=== PATIENT | female | born 1990 | race American Indian/Alaskan Native ===

== ENCOUNTER 2019-12-10 14:38 | Emergency (ER) | payer SELFPAY ==
--- NOTE | 2019-12-10 15:46 | Emergency Department Report ---
Blank Doc - Documentation Documentation: 29-year-old female that presents with n/v and vaginal bleeding. Stated is 9 we eks . This initial assessment/diagnostic orders/clinical plan/treatment(s) is/are subject to change based on patient's health status, clinical progression and re- assessment by fellow clinical providers in the ED. Further treatment and workup at subsequent clinical providers discretion. Patient/guardians urged not to elope from the ED as their condition may be serious if not clinically assessed and managed. Initial orders include: 1- Patient sent to [facility] for further evaluation and treatment 2- labs 3- UA
[2019-12-11] MEDS ORDERED: SODIUM CHLORIDE 0.9% 1000 ML 1,000 ML IV ONE (00:32)
[2019-12-11] MEDS ORDERED: ACETAMINOPHEN 325 MG TAB PO ONE (00:32)
[2019-12-11] MEDS ORDERED: ONDANSETRON 4 MG/2 ML INJ IV ONE (00:32)
[2019-12-11 01:12] LABS: Basophils # (Auto) 0.1 K/mm3 (0.0-0.1); Basophils % (Auto) 0.7 % (0.0-1.8); Eosinophils # (Auto) 0.1 K/mm3 (0.0-0.4); Eosinophils % (Auto) 0.6 % (0.0-4.3); Hematocrit 38.1 % (30.3-42.9); Hemoglobin 11.9 gm/dl (10.1-14.3); Lymphocytes # (Auto) 2.1 K/mm3 (1.2-5.4); Lymphocytes % (Auto) 24.6 % (13.4-35.0); Mean Corpuscular HGB Conc 31 % (30-34); Mean Corpuscular Volume 75 fl (79-97); Monocytes # (Auto) 0.8 K/mm3 (0.0-0.8); Monocytes % (Auto) 9.7 % (0.0-7.3); Platelet Count 301 K/mm3 (140-440); Red Blood Count 5.07 M/mm3 (3.65-5.03); Red Cell Distribution Width 13.6 % (13.2-15.2)
--- NOTE | 2019-12-11 01:34 | Emergency Department Report ---
ED HPI - General Chief complaint: Nausea/Vomiting/Diarrhea Stated complaint: 9 WEEKS PREG BLEEDING,VOMITTING Time Seen by Provider: 12/10/19 15:45 Source: patient Mode of arrival: Ambulatory Limitations: No Limitations - History of Present Illness Initial comments: Patient is a 29-year-old female presents emergency room with complaints of naus ea and vomiting that began yesterday. She has associated generalized abdominal discomfort and vaginal spotting. Patient states that she is currently 9 weeks . Patient states that she went to her OB in [place] today and had ultrasound performed but states she does not know what the ultrasound showed. She denies any urinary symptoms, diarrhea, hematochezia, hematemesis. She states that she had a normal bowel movement today. She denies any past medical history or allergies to medications. She states her last menstrual cycle was 10/07/2019. Patient states this is her first . - Related Data Previous Rx's Medication Instructions Recorded Last Taken Type Metoclopramide [Reglan] 10 mg PO Q8HR PRN #14 tab 12/11/19 Unknown Rx Allergies Allergy/AdvReac Type Severity Reaction Status Date / Time No Known Allergies Allergy Unverified 12/10/19 14:43 ED Review of Systems ROS: Stated complaint: 9 WEEKS PREG BLEEDING,VOMITTING Other details as noted in HPI Comment: All other systems reviewed and negative ED Past Medical Hx - Past Medical History Previous Medical History?: No - Surgical History Past Surgical History?: No - Social History Smoking Status: Never Smoker Substance Use Type: None - Medications Home Medications: Home Medications Medication Instructions Recorded Confirmed Last Taken Type Metoclopramide [Reglan] 10 mg PO Q8HR PRN #14 tab 12/11/19 Unknown Rx ED Physical Exam - General Limitations: No Limitations General appearance: alert, in no apparent distress - Head Head exam: Present: atraumatic, normocephalic - Eye Eye exam: Present: normal appearance - ENT ENT exam: Present: mucous membranes dry (mildly) - Respiratory Respiratory exam: Present: normal lung sounds bilaterally. Absent: respiratory distress, wheezes, rales, rhonchi, stridor, chest wall tenderness, accessory muscle use, decreased breath sounds, prolonged expiratory - Cardiovascular Cardiovascular Exam: Present: regular rate, normal rhythm, normal heart sounds. Absent: systolic murmur, diastolic murmur, rubs, gallop - GI/Abdominal GI/Abdominal exam: Present: soft, normal bowel sounds. Absent: distended, tenderness, guarding, rebound, rigid - Neurological Exam Neurological exam: Present: alert, oriented X3 - Psychiatric Psychiatric exam: Present: normal affect, normal mood - Skin Skin exam: Present: warm, dry, intact ED Course Vital Signs 12/10/19 15:45 Temperature 97.7 F Pulse Rate 85 Respiratory 18 Rate Blood Pressure 120/64 O2 Sat by Pulse 100 Oximetry ED Medical Decision Making - Lab Data Result diagrams: 12/11/19 00:41 12/11/19 00:41 Lab Results 12/11/19 12/11/19 12/11/19 Range/Units 00:41 00:41 00:41 WBC 8.4 (4.5-11.0) K/mm3 RBC 5.07 H (3.65-5.03) M/mm3 Hgb 11.9 (10.1-14.3) gm/dl Hct 38.1 (30.3-42.9) % MCV 75 L (79-97) fl MCH 23 L (28-32) pg MCHC 31 (30-34) % RDW 13.6 (13.2-15.2) % Plt Count 301 (140-440) K/mm3 Lymph % (Auto) 24.6 (13.4-35.0) % [place] % (Auto) 9.7 H (0.0-7.3) % Eos % (Auto) 0.6 (0.0-4.3) % Baso % (Auto) 0.7 (0.0-1.8) % Lymph # 2.1 (1.2-5.4) K/mm3 Atkinson # 0.8 (0.0-0.8) K/mm3 Eos # 0.1 (0.0-0.4) K/mm3 Baso # 0.1 (0.0-0.1) K/mm3 Seg Neutrophils % 64.4 (40.0-70.0) % Seg Neutrophils # 5.4 (1.8-7.7) K/mm3 Sodium 137 (137-145) mmol/L Potassium 3.6 (3.6-5.0) mmol/L Chloride 101.1 (98-107) mmol/L Carbon Dioxide 20 L (22-30) mmol/L Anion Gap 20 mmol/L BUN 6 L (7-17) mg/dL Creatinine 0.5 L (0.7-1.2) mg/dL Estimated GFR > 60 ml/min BUN/Creatinine Ratio 12 % Glucose 88 (65-100) mg/dL Calcium 9.4 (8.4-10.2) mg/dL Total Bilirubin 0.40 (0.1-1.2) mg/dL AST 16 (5-40) units/L ALT 8 (7-56) units/L Alkaline Phosphatase 50 (35-129) units/L Total Protein 7.6 (6.3-8.2) g/dL Albumin 4.3 (3.9-5) g/dL Albumin/Globulin Ratio 1.3 % Lipase 65 H (13-60) units/L HCG, Quant 19616 H (0-4) mIU/mL Urine Color (Yellow) Urine Turbidity (Clear) Urine pH (5.0-7.0) Ur Specific [place] (1.003-1.030) Urine Protein (Negative) mg/dL Urine Glucose (UA) (Negative) mg/dL Urine Ketones (Negative) mg/dL Urine Blood (Negative) Urine Nitrite (Negative) Urine Bilirubin (Negative) Urine Urobilinogen (<2.0) mg/dL Ur Leukocyte Esterase (Negative) Urine WBC (Auto) (0.0-6.0) /HPF Urine RBC (Auto) (0.0-6.0) /HPF U Epithel Cells (Auto) (0-13.0) /HPF Urine Bacteria (Auto) (Negative) /HPF Urine Mucus /HPF Blood Type 12/11/19 12/11/19 Range/Units 00:53 02:36 WBC (4.5-11.0) K/mm3 RBC (3.65-5.03) M/mm3 Hgb (10.1-14.3) gm/dl Hct (30.3-42.9) % MCV (79-97) fl MCH (28-32) pg MCHC (30-34) % RDW (13.2-15.2) % Plt Count (140-440) K/mm3 Lymph % (Auto) (13.4-35.0) % [place] % (Auto) (0.0-7.3) % Eos % (Auto) (0.0-4.3) % Baso % (Auto) (0.0-1.8) % Lymph # (1.2-5.4) K/mm3 [place] # (0.0-0.8) K/mm3 Eos # (0.0-0.4) K/mm3 Baso # (0.0-0.1) K/mm3 Seg Neutrophils % (40.0-70.0) % Seg Neutrophils # (1.8-7.7) K/mm3 Sodium (137-145) mmol/L Potassium (3.6-5.0) mmol/L Chloride (98-107) mmol/L Carbon Dioxide (22-30) mmol/L Anion Gap mmol/L BUN (7-17) mg/dL Creatinine (0.7-1.2) mg/dL Estimated GFR ml/min BUN/Creatinine Ratio % Glucose (65-100) mg/dL Calcium (8.4-10.2) mg/dL Total Bilirubin (0.1-1.2) mg/dL AST (5-40) units/L ALT (7-56) units/L Alkaline Phosphatase (35-129) units/L Total Protein (6.3-8.2) g/dL Albumin (3.9-5) g/dL Albumin/Globulin Ratio % Lipase (13-60) units/L HCG, Quant (0-4) mIU/mL Urine Color Yellow (Yellow) Urine Turbidity Slightly-cloudy (Clear) Urine pH 5.0 (5.0-7.0) Ur Specific [place] 1.030 (1.003-1.030) Urine Protein 30 mg/dl (Negative) mg/dL Urine Glucose (UA) 50 (Negative) mg/dL Urine Ketones 80 (Negative) mg/dL Urine Blood Lg (Negative) Urine Nitrite Neg (Negative) Urine Bilirubin Neg (Negative) Urine Urobilinogen < 2.0 (<2.0) mg/dL Ur Leukocyte Esterase Neg (Negative) Urine WBC (Auto) 3.0 (0.0-6.0) /HPF Urine RBC (Auto) 3.0 (0.0-6.0) /HPF U Epithel Cells (Auto) 5.0 (0-13.0) /HPF Urine Bacteria (Auto) 1+ (Negative) /HPF Urine Mucus 3+ /HPF Blood Type B POSITIVE - Radiology Data Radiology results: report reviewed ULTRASOUND OBSTETRIC INDICATION / CLINICAL INFORMATION: 9 weeks , abd pain, spotting. Clinical Gestational Age (GA): 9 weeks 2 days TECHNIQUE: Transabdominal. COMPARISON: None available. FINDINGS: GESTATIONAL SAC: Well-defined oval shape and intrauterine in location. YOLK SAC: No significant abnormality. EMBRYO/FETUS: No significant abnormality. - [place]-Rump Length = 2.69 cm = 9 weeks, 3 day(s). - Heart Rate, beats per minute (if present) = 178 ADNEXA: No significant abnormality. Both ovaries well-visualized and without abnormality. FREE FLUID: None. ADDITIONAL FINDINGS: None. IMPRESSION: 1. Single, living intrauterine with estimated sonographic age of 9 weeks, 3 day(s). Signer Name: Britney Sol MD Signed: 12/11/2019 1:45 AM Workstation Name: [id number] Transcribed By: Dictated By: Britney Sol MD Electronically Authenticated By: Britney Sol MD Signed Date/Time: 12/11/19144 DD/ 2 TD/TT: - Medical Decision Making Patient is a 29-year-old female presents emergency room with complaints of nausea and vomiting that began yesterday. She has associated generalized abdominal discomfort and vaginal spotting. Patient states that she is currently 9 weeks . Patient states that she went to her OB in [place] today and had ultrasound performed but states she does not know what the ultr asound showed. She denies any urinary symptoms, diarrhea, hematochezia, hematemesis. She states that she had a normal bowel movement today. She denies any past medical history or allergies to medications. She states her last menstrual cycle was 10/07/2019. Patient states this is her first . Vitals are normal. [place] [address]. pt is Rh positive. UA without UTI, shows signs of dehydration. Patient given 1 L IV fluids, Tylenol, Zofran and symptoms improved patient was able to tolerate p.o. intake and had no further episodes of vomiting while in the ED. US OB: 1. Single, living intrauterine with estimated sonographic age of 9 weeks, 3 day(s). Discussed all findings with patient. Discussed the importance of follow-up with [facility] with patient. Discussed with patient that she would need to have a repeat hCG quant in 2 days. please take medication as prescribed as needed. Increase your fluid intake over the next several days. Eat a bland diet. please take vitamin over the counter. Follow-up with [facility] in the next 2 days. Please have your hCG quant repeated. Return to the emergency room for any new or worsening symptoms. - Differential Diagnosis IUP, hyperemesis, ectopic, subchorionic hemorrhage, ovarian cyst, dehydrati Critical care attestation.: If time is entered above; I have spent that time in minutes in the direct care of this critically ill patient, excluding procedure time. ED Disposition Clinical Impression: Vaginal spotting Qualifiers: Weeks of gestation: 9 weeks Qualified Code(s): Z3A.09 - 9 weeks gestation of Abdominal pain in Qualifiers: Trimester: first trimester Qualified Code(s): O26.891 - Other specified related conditions, first trimester Nausea and vomiting Qualifiers: Vomiting type: unspecified Vomiting Intractability: non-intractable Qualified Code(s): R11.2 - Nausea with vomiting, unspecified Disposition: DC-01 TO HOME OR SELFCARE Is pt being admited?: No Does the pt Need Aspirin: No Condition: Stable Instructions: Hyperemesis Gravidarum (ED), Abdominal Pain in (ED) Additional Instructions: please take medication as prescribed as needed. Increase your fluid intake over the next several days. Eat a bland diet. please take vitamin over the counter. Follow-up with [facility] in the next 2 days. Please have your hCG quant repeated. Return to the emergency room for any new or worsening symptoms. Prescriptions: Metoclopramide [Reglan] 10 mg PO Q8HR PRN #14 tab PRN Reason: Nausea And Vomiting Referrals: your, [facility] [Other] - 2-3 Days Time of Disposition: 03:14 Print Language: MOROCCAN
[2019-12-11 01:35] LABS: Alanine Aminotransferase 8 units/L (7-56); Albumin 4.3 g/dL (3.9-5); BUN/Creatinine Ratio 12; Blood Urea Nitrogen 6 mg/dL (7-17); Calcium 9.4 mg/dL (8.4-10.2); Hemolysis Index 22
--- NOTE | 2019-12-11 01:49 | Ultrasound Report ---
ULTRASOUND OBSTETRIC INDICATION / CLINICAL INFORMATION: 9 weeks , abd pain, spotting. Clinical Gestational Age (GA): 9 weeks 2 days TECHNIQUE: Transabdominal. COMPARISON: None available. FINDINGS: GESTATIONAL SAC: Well-defined oval shape and intrauterine in location. YOLK SAC: No significant abnormality. EMBRYO/FETUS: No significant abnormality. - [place]-Rump Length = 2.69 cm = 9 weeks, 3 day(s). - Heart Rate, beats per minute (if present) = 178 ADNEXA: No significant abnormality. Both ovaries well-visualized and without abnormality. FREE FLUID: None. ADDITIONAL FINDINGS: None. IMPRESSION: 1. Single, living intrauterine with estimated sonographic age of 9 weeks, 3 day(s). Signer Name: Britney Sol MD Signed: 12/11/2019 1:45 AM Workstation Name: [id number]
[2019-12-11 03:08] LABS: Bacteria,Urine 1+ /HPF (Negative); Bilirubin,Urine NEG (Negative); Blood,Urine LG (Negative); Color,Urine Yellow (Yellow); Mucus,Urine 3+ /HPF; Urobilinogen,Urine < 2.0 mg/dL (<2.0)
[2019-12-11] MEDS ORDERED: METOCLOPRAMIDE 10 MG/2 ML INJ IV ONE ×2 (03:36→03:40)
[2019-12-11] MEDS ORDERED: METOCLOPRAMIDE 10 MG/2 ML INJ ONE (03:38)
[2019-12-11 07:37] VITALS: BP 105/50
== END 2019-12-11 03:30 | disposition home or self-care (01) ==
LOC: ED 14:38
DX: O26.851 Spotting complicating pregnancy, first trimester (principal); O26.891 Other specified pregnancy related conditions, first trimester; R10.84 Generalized abdominal pain; O21.8 Other vomiting complicating pregnancy; Z3A.09 9 weeks gestation of pregnancy
CPT/HCPCS: 36415; 76801; 80053; 81001; 83690; 84702; 85025; 86900; 86901; 96361; 96374; 96375; 99284; J2405; J2765; J7030